=== PATIENT | female | born 1985 | race Caucasian/White ===

== ENCOUNTER → 2018-06-17 | Outpatient (CLI) | payer OTHER ==
[~2018-06-17] MED LIST: BUSP10 PO; CYCL10 PO; Imitrex50 MG JT; LAMOTRIGINE200 MG PO; MONT10T PO
== END | disposition home or self-care (01) ==
LOC: LAB SHORT 15:08 → LAB EV 15:08
DX: R10.9 Unspecified abdominal pain (principal)
CPT/HCPCS: 87086

== ENCOUNTER 2018-12-07 01:12 | Emergency (ER) | payer OTHER ==
[~2018-12-07] VITALS: Ht 175.3 cm; Wt 90.7 kg
[2018-12-07] MEDS ORDERED: ALBU90OI61 INH (01:32)
== END 2018-12-07 02:25 | disposition home or self-care (01) ==
LOC: ER 01:12
DX: S93.402A Sprain of unspecified ligament of left ankle, initial encounter (principal); W01.198A Fall on same level from slipping, tripping and stumbling with subsequent striking against other object, initial encounter; Z79.899 Other long term (current) drug therapy; F31.9 Bipolar disorder, unspecified; J45.909 Unspecified asthma, uncomplicated
CPT/HCPCS: 29515; 73590; 99283-25

== ENCOUNTER → 2020-07-24 | Outpatient (CLI) | payer SELFPAY ==
[~2020-07-24] MED LIST changes: +ALBU90OI61 INH
== END | disposition home or self-care (01) ==
LOC: LAB 14:00 → LAB SHORT 14:00
DX: R10.9 Unspecified abdominal pain (principal)
CPT/HCPCS: 87086